=== PATIENT | male | born 1945 | race Caucasian/White ===

== ENCOUNTER 2019-02-03 15:10 | Inpatient (IN) | payer MEDICARE ==
--- NOTE | 2019-02-03 15:59 | ER Document Report ---
ED Medical Screen (RME) - General Chief Complaint: Abnormal Lab Results Stated Complaint: ABNORMAL LABS Time Seen by Provider: 02/03/19 15:57 Primary Care Provider: LEO BAIG MD [Primary Care Provider] - Follow up as needed Mode of Arrival: Ambulatory Information source: Patient Notes: 73-year-old male presented to ED for nausea vomiting and diarrhea for 16 days. He states the nausea and vomiting stopped about 3 days ago but he has continued to have diarrhea. He states his been to the doctor multiple times and tried everything they told him to try but he continues to have diarrhea. He states he is becoming very weak and tired from all the diarrhea. He states he had labs drawn on the it was told to come to the emergency room due to the labs. He does have a copy of all of his lab results with him. Patient is alert oriented respirations regular and unlabored speaking in full sentences. I have greeted and performed a rapid initial assessment of this patient. A comprehensive ED assessment and evaluation of the patient, analysis of test results and completion of medical decision making process will be conducted by an additional ED providers. Dictation of this chart was performed using voice recognition software; therefore, there may be some unintended grammatical errors. TRAVEL OUTSIDE OF THE [place] IN LAST 30 DAYS: No - Related Data Allergies/Adverse Reactions: No Known Allergies Allergy (Verified 02/03/19 15:17) Physical Exam - Vital signs Vitals: Temp Pulse Resp BP Pulse Ox 98.3 F 77 15 109/50 L 93 02/03/19 15:19 02/03/19 15:19 02/03/19 15:19 02/03/19 15:19 02/03/19 15:19 Course - Vital Signs Vital signs: Temp Pulse Resp BP Pulse Ox 98.3 F 77 15 109/50 L 93 02/03/19 15:19 02/03/19 15:19 02/03/19 15:19 02/03/19 15:19 02/03/19 15:19 Doctor's Discharge - Discharge Referrals: LEO BAIG MD [Primary Care Provider] - Follow up as needed
[2019-02-03] MEDS ORDERED: NORMAL SALINE 1000 ML 1,000 ML IV ONE (16:00)
[2019-02-03 16:49] LABS: ABSOLUTE BASOPHILS # (AUTO) 0.1 10^3/uL (0.0-0.2); ABSOLUTE EOSINOPHILS # (AUTO) 0.1 10^3/uL (0.0-0.6); ABSOLUTE LYMPHOCYTES (AUTO) 0.6 10^3/uL (0.5-4.7); ABSOLUTE MONOCYTES (AUTO) 0.5 10^3/uL (0.1-1.4); ABSOLUTE NEUT (AUTO) 5.6 10^3/uL (1.7-8.2); EOSINOPHILS % (AUTO) 1.2 % (0-6); HEMATOCRIT 35.6 % (37.9-51.0); LYMPHOCYTES % (AUTO) 9.2 % (13-45); MEAN CORPUSCULAR HEMOGLOBIN 31.3 pg (27.0-33.4); MEAN CORPUSCULAR HGB CONC 33.9 g/dL (32.0-36.0); MEAN CORPUSCULAR VOLUME 92 fl (80-97); MONOCYTES % (AUTO) 7.4 % (3-13); PLATELET COUNT 374 10^3/uL (150-450); RED BLOOD COUNT 3.85 10^6/uL (4.35-5.55); RED CELL DISTRIBUTION WIDTH 13.6 % (11.5-14.0); SEGMENTED NEUTROPHILS % (AUTO) 81.2 % (42-78); TOTAL CELLS COUNTED % (AUTO) 100 %; WHITE BLOOD COUNT 6.9 10^3/uL (4.0-10.5)
[2019-02-03 17:00] LABS: APPEARANCE,URINE CLEAR; BILIRUBIN,URINE NEGATIVE (NEGATIVE); COLOR,URINE YELLOW; GLUCOSE, URINE NEGATIVE (NEGATIVE); KETONES,URINE TRACE mg/dL (NEGATIVE); LEUKOCYTE ESTERASE,URINE SMALL (NEGATIVE); NITRITE,URINE NEGATIVE (NEGATIVE); PROTEIN,URINE NEGATIVE (NEGATIVE); URINE SPECIFIC GRAVITY 1.008; UROBILINOGEN,URINE NEGATIVE mg/dL (<2.0)
[2019-02-03 17:14] LABS: ALANINE AMINOTRANSFERASE 70 U/L (21-72); ALBUMIN 4.3 g/dL (3.5-5.0); ALKALINE PHOSPHATASE 149 U/L (38-126); ANION GAP 16 (5-19); ASPARTATE AMINO TRANSFERASE 76 U/L (17-59); BILIRUBIN,DIRECT 0.5 mg/dL (0.0-0.4); BILIRUBIN,TOTAL 0.8 mg/dL (0.2-1.3); BLOOD UREA NITROGEN 40 mg/dL (7-20); CALCIUM 9.6 mg/dL (8.4-10.2); CARBON DIOXIDE 28 mmol/L (22-30); CHLORIDE 92 mmol/L (98-107); GLUCOSE 98 mg/dL (75-110); POTASSIUM 4.4 mmol/L (3.6-5.0); SODIUM 135.7 mmol/L (137-145); TOTAL PROTEIN 7.5 g/dL (6.3-8.2)
[2019-02-03] MEDS ORDERED: RINGERS SOLUTION,LACTATED 1,000 ML IV ONE (17:52)
--- NOTE | 2019-02-03 18:17 | ER Document Report ---
ED General - General Chief Complaint: Abnormal Lab Results Stated Complaint: ABNORMAL LABS Time Seen by Provider: 02/03/19 15:57 Mode of Arrival: Ambulatory Notes: E Provider note: 73-year-old male presented to ED for nausea vomiting and diarrhea for 16 days. He states the nausea and vomiting stopped about 3 days ago but he has continued to have diarrhea. He states his been to the doctor multiple times and tried everything they told him to try but he continues to have diarrhea. He states he is becoming very weak and tired from all the diarrhea. He states he had labs drawn on the it was told to come to the emergency room due to the labs. He does have a copy of all of his lab results with him. Patient is alert oriented respirations regular and unlabored speaking in full sentences. My HPI: Creatinine of 2.10 NA 133 K 3.7 H&H 11.7:33.5 Labs all per documentation patient is brought from primary care provider Denis on 01/29/2019. Patient states he was placed on Zofran, metronidazole, ciprofloxacin. States he is taking his medications as prescribed. States his diarrhea has since stopped and he is no longer nauseous. States he was just worried about the jerking in bilateral feet. States he has been generalized weak. Family is in the room stating that he is a lot weaker than normal. Past medical history: Hypertension, hyperlipidemia, DVT, anxiety Medications: Hydrocodone, Eliquis, Valium, Loricet Allergies: None TRAVEL OUTSIDE OF THE [place] IN LAST 30 DAYS: No - Related Data Allergies/Adverse Reactions: No Known Allergies Allergy (Verified 02/03/19 15:17) Past Medical History - General Information source: Patient - Social History Smoking Status: Former Smoker Chew tobacco use (# tins/day): No Frequency of alcohol use: None Drug Abuse: None Family History: Reviewed & Not Pertinent Patient has suicidal ideation: No Patient has homicidal ideation: No - Past Medical History Cardiac Medical History: Reports: Hx Heart Attack Pulmonary Medical History: Reports: Hx COPD Renal/ Medical History: Denies: Hx Peritoneal Dialysis Review of Systems - Review of Systems Constitutional: denies: Fever EENT: No symptoms reported Cardiovascular: No symptoms reported Respiratory: No symptoms reported Gastrointestinal: See HPI Genitourinary: No symptoms reported Male Genitourinary: No symptoms reported Musculoskeletal: No symptoms reported Skin: No symptoms reported Hematologic/Lymphatic: No symptoms reported Neurological/Psychological: No symptoms reported Physical Exam - Vital signs Vitals: Temp Pulse Resp BP Pulse Ox 98.3 F 77 15 109/50 L 93 02/03/19 15:19 02/03/19 15:19 02/03/19 15:19 02/03/19 15:19 02/03/19 15:19 - Notes Notes: GENERAL: Alert, interacts well. No acute distress. HEAD: Normocephalic, atraumatic. EYES: Pupils equal, round, and reactive to light. Extraocular movements intact. ENT: Oral mucosa moist, tongue midline. NECK: Full range of motion. Supple. Trachea midline. LUNGS: Clear to auscultation bilaterally, no wheezes, rales, or rhonchi. No respiratory distress. HEART: Regular rate and rhythm. No murmur ABDOMEN: Soft, non-tender. Non-distended. Bowel sounds present in all 4 quadrants. No McBurney's point tenderness, no Rodriguez sign EXTREMITIES: Moves all 4 extremities spontaneously. No edema, normal radial and dorsalis pedis pulses bilaterally. No cyanosis. 5 out of 5 strength all 4 ext remities BACK: no cervical, thoracic, lumbar midline tenderness. No saddle anesthesia, normal distal neurovascular exam. NEUROLOGICAL: Alert and oriented x3. Normal speech. cranial nerves II through XII grossly intact PSYCH: Normal affect, normal mood. SKIN: Warm, dry, normal turgor. No rashes or lesions noted. Course - Re-evaluation Re-evalutation: Patient's labs do show an increase in his creatinine since drawn on 01/29/2019. Despite fluid resuscitation patient still has intermittent jerking bilateral lower extremities. I discussed this case with hospitalist Dr. Wisdom who will accept the patient for acute kidney injury, hypermagnesium. At this time patient has not yet had a bowel movement in the emergency department to get cultures. Patient remains hemodynamically stable continues to deny any abdominal pain, chest pain, shortness of breath. Patient states he overall feels better after initial fluid bolus in the emergency room. Labs are as follows Laboratory 02/03/19 02/03/19 02/03/19 16:30 16:30 16:30 WBC 6.9 RBC 3.85 L Hgb 12.0 L Hct 35.6 L MCV 92 MCH 31.3 MCHC 33.9 RDW 13.6 Plt Count 374 Seg Neutrophils % 81.2 H Lymphocytes % 9.2 L Monocytes % 7.4 Eosinophils % 1.2 Basophils % 1.0 Absolute Neutrophils 5.6 Absolute Lymphocytes 0.6 Absolute Monocytes 0.5 Absolute Eosinophils 0.1 Absolute Basophils 0.1 Sodium 135.7 L Potassium 4.4 Chloride 92 L Carbon Dioxide 28 Anion Gap 16 BUN 40 H Creatinine 2.75 H Est GFR ( Amer) 28 L Est GFR (Non-Af Amer) 23 L Glucose 98 Calcium 9.6 Magnesium 2.9 H Total Bilirubin 0.8 Direct Bilirubin 0.5 H Neonat Total Bilirubin Not Reportable Neonat Direct Bilirubin Not Reportable Neonat Indirect Bili Not Reportable AST 76 H ALT 70 Alkaline Phosphatase 149 H Total Protein 7.5 Albumin 4.3 Lipase Urine Color YELLOW Urine Appearance CLEAR Urine pH 6.0 Ur Specific [place] 1.008 Urine Protein NEGATIVE Urine Glucose (UA) NEGATIVE Urine Ketones TRACE H Urine Blood NEGATIVE Urine Nitrite NEGATIVE Urine Bilirubin NEGATIVE Urine Urobilinogen NEGATIVE Ur Leukocyte Esterase SMALL H Urine WBC (Auto) 1 Urine RBC (Auto) 0 Squamous Epi Cells Auto <1 Urine Ascorbic Acid NEGATIVE Stool Occult Blood 02/03/19 02/03/19 16:30 19:38 WBC RBC Hgb Hct MCV MCH MCHC RDW Plt Count Seg Neutrophils % Lymphocytes % Monocytes % Eosinophils % Basophils % Absolute Neutrophils Absolute Lymphocytes Absolute Monocytes Absolute Eosinophils Absolute Basophils Sodium Potassium Chloride Carbon Dioxide Anion Gap BUN Creatinine Est GFR ( Amer) Est GFR (Non-Af Amer) Glucose Calcium Magnesium Total Bilirubin Direct Bilirubin Neonat Total Bilirubin Neonat Direct Bilirubin Neonat Indirect Bili AST ALT Alkaline Phosphatase Total Protein Albumin Lipase 131.6 Urine Color Urine Appearance Urine pH Ur Specific [place] Urine Protein Urine Glucose (UA) Urine Ketones Urine Blood Urine Nitrite Urine Bilirubin Urine Urobilinogen Ur Leukocyte Esterase Urine WBC (Auto) Urine RBC (Auto) Squamous Epi Cells Auto Urine Ascorbic Acid Stool Occult Blood NEGATIVE - Vital Signs Vital signs: Temp Pulse Resp BP Pulse Ox 98.3 F 77 15 109/50 L 93 02/03/19 15:19 02/03/19 15:19 02/03/19 15:19 02/03/19 15:19 02/03/19 15:19 - Laboratory Result Diagrams: 02/03/19 16:30 02/03/19 16:30 Laboratory results interpreted by me: 02/03/19 02/03/19 02/03/19 16:30 16:30 16:30 RBC 3.85 L Hgb 12.0 L Hct 35.6 L Seg Neutrophils % 81.2 H Lymphocytes % 9.2 L Sodium 135.7 L Chloride 92 L BUN 40 H Creatinine 2.75 H Est GFR ( Amer) 28 L Est GFR (Non-Af Amer) 23 L Magnesium 2.9 H Direct Bilirubin 0.5 H AST 76 H Alkaline Phosphatase 149 H Urine Ketones TRACE H Ur Leukocyte Esterase SMALL H Discharge - Discharge Clinical Impression: Acute kidney injury, Hypermagnesemia Diarrhea Qualifiers: Diarrhea type: unspecified type Qualified Code(s): R19.7 - Diarrhea, unspecified Condition: Stable Disposition: ADMITTED INPATIENT Admitting Provider: Artis (Hospitalist) Unit Admitted: Medical Floor
--- NOTE | 2019-02-03 21:45 | PDOC H&P ---
History of Present Illness Admission Date/PCP: 02/03/19 19:46 LEO BAIG MD Patient complains of: Diarrhea History of Present Illness: AMELIA TILLMAN SR is a 73 year old male who presented to the emergency room with a 16-day history of diarrhea. He admits that 16 days ago after doing some yard work in the hot sun he came in and took a shower and ate supper and then started feeling ill with diarrhea and nausea and vomiting. After the first day or 2 the nausea and vomiting resolved but his diarrhea has persisted. He admits having moderate (3-5) watery diarrhea stools per day and acknowledges the associated symptoms of progressively worsening generalized weakness with some mild dizziness and tremulousness on the morning of admission. He has visited his primary care provider several times over the last 2 weeks for this complaint and after having blood work obtained a few days ago was directed to come to the emergency room for further evaluation and treatment due to his "dehydration". He denies prior similar episodes and has not identified any aggravating or ameliorating factors for his diarrhea. In the emergency room he was found to have a creatinine of 2.75 with an elevated magnesium of 2.9. He was subsequently admitted to the hospital for further evaluation and treatment. Past Medical History Cardiac Medical History: Reports: Coronary Artery Disease, Myocardial Infarction, Hypertension Pulmonary Medical History: Reports: Chronic Obstructive Pulmonary Disease (COPD) Denies: Asthma EENT Medical History: Denies: Cataracts, Ears - Hearing aid Neurological Medical History: Denies: Hemorrhagic CVA, Ischemic CVA, Seizures Endocrine Medical History: Denies: Diabetes Mellitus Type 1, Diabetes Mellitus Type 2, Hyperthyroidism, Hypothyroidism, Obesity Renal/ Medical History: Denies: Chronic Kidney Disease, Nephrolithiasis Malignancy Medical History: Reports: None GI Medical History: Reports: Other - Perirectal abscess (remote history) Denies: Cirrhosis, Hepatitis, Peptic Ulcer Disease Musculoskeltal Medical History: Reports: Other - Chronic back pain Denies: Arthritis, Gout Skin Medical History: Denies: Eczema, Psoriasis Psychiatric Medical History: Reports: Tobacco Dependency Denies: Alcohol Dependency, Substance Abuse Traumatic Medical History: Reports: None Hematology: Denies: Anemia, Bleeding Tendencies Infectious Medical History: Reports: None Past Surgical History Past Surgical History: Reports: Other - Incision and drainage of a perirectal abscess Social History Information Source: Patient Lives with: Spouse/Significant other Smoking Status: Former Smoker Frequency of Alcohol Use: None Hx Recreational Drug Use: No Drugs: None Hx Prescription Drug Abuse: No - Advance Directive Resuscitation Status: Full Code Surrogate healthcare decision maker:: Arlin Tillman Family History Family History: CAD, DM, Hypertension, Malignancy Parental Family History Reviewed: Yes Children Family History Reviewed: No Sibling(s) Family History Reviewed.: Yes Medication/Allergy Home Medications: Ciprofloxacin HCl [Cipro 500 mg Tablet] 500 mg PO Q12 02/03/19 Diazepam [Valium 5 mg Tablet] 5 mg PO BID 02/03/19 Hydrocodone/Acetaminophen [[place] 10-325 mg Tablet] 1 tab PO QID 02/03/19 Lisinopril/Hydrochlorothiazide [Zestoretic 20-25 mg Tablet] 1 tab PO DAILY 02/03/19 Metronidazole [Flagyl 500 mg Tablet] 500 mg PO Q8 02/03/19 Ondansetron [Zofran Odt 4 mg Tablet] 8 mg PO Q8HP PRN 02/03/19 Allergies/Adverse Reactions: No Known Allergies Allergy (Verified 02/03/19 15:17) Review of Systems Constitutional: PRESENT: as per HPI, weakness. ABSENT: anorexia, chills, fever(s) Eyes: ABSENT: visual disturbances, other - Ocular pain Ears: ABSENT: hearing changes, other - Ear pain Nose, Mouth, and Throat: ABSENT: mouth pain, sore throat Cardiovascular: ABSENT: chest pain, palpitations Respiratory: ABSENT: cough, dyspnea Gastrointestinal: PRESENT: as per HPI, diarrhea, nausea, vomiting. ABSENT: abdominal pain, constipation, hematochezia, melena Genitourinary: ABSENT: dysuria, hematuria Musculoskeletal: PRESENT: back pain. ABSENT: joint swelling, muscle weakness Integumentary: ABSENT: pruritus, rash - Chronic Neurological: PRESENT: as per HPI, dizziness - Dizziness on the morning of admission, tremor(s) - Tremulousness on the morning of admission. ABSENT: c onfusion, convulsions, focal weakness, memory loss, syncope Psychiatric: ABSENT: anxiety, depression Endocrine: ABSENT: cold intolerance, heat intolerance Hematologic/Lymphatic: ABSENT: easy bleeding, easy bruising Physical Exam Vital Signs: Temp Pulse Resp BP Pulse Ox 98.3 F 77 15 109/50 L 93 02/03/19 15:19 02/03/19 15:19 02/03/19 15:19 02/03/19 15:19 02/03/19 15:19 Intake & Output 02/01/19 02/02/19 02/03/19 23:59 23:59 23:59 Intake Total 1999 Balance 1999 Weight 83.1 kg General appearance: PRESENT: no acute distress, cooperative Head exam: PRESENT: atraumatic, normocephalic Eye exam: ABSENT: conjunctival injection, scleral icterus Ear exam: PRESENT: normal external ear exam. ABSENT: bleeding, drainage Mouth exam: PRESENT: dry mucosa, neck supple Neck exam: ABSENT: thyromegaly, tracheal deviation Respiratory exam: PRESENT: clear to auscultation vazquez, symmetrical, unlabored Cardiovascular exam: PRESENT: RRR. ABSENT: clicks, gallop, rubs Pulses: PRESENT: normal radial pulses, normal dorsalis pedis pul Vascular exam: PRESENT: normal capillary refill. ABSENT: pallor GI/Abdominal exam: PRESENT: hyperactive bowel sounds, soft. ABSENT: tenderness Rectal exam: PRESENT: deferred Extremities exam: ABSENT: joint swelling, pedal edema Musculoskeletal exam: PRESENT: full ROM, normal inspection Neurological exam: PRESENT: alert, oriented to person, oriented to place, oriented to time, oriented to situation, CN II-XII grossly intact. ABSENT: motor sensory deficit Psychiatric exam: PRESENT: appropriate affect, normal mood Skin exam: PRESENT: dry, intact, warm. ABSENT: jaundice, rash, urticaria Results Laboratory Results: 02/03/19 16:30 02/03/19 16:30 02/03/19 02/03/19 02/03/19 16:30 16:30 16:30 WBC 6.9 RBC 3.85 L Hgb 12.0 L Hct 35.6 L MCV 92 MCH 31.3 MCHC 33.9 RDW 13.6 Plt Count 374 Seg Neutrophils % 81.2 H Lymphocytes % 9.2 L Monocytes % 7.4 Eosinophils % 1.2 Basophils % 1.0 Absolute Neutrophils 5.6 Absolute Lymphocytes 0.6 Absolute Monocytes 0.5 Absolute Eosinophils 0.1 Absolute Basophils 0.1 Sodium 135.7 L Potassium 4.4 Chloride 92 L Carbon Dioxide 28 Anion Gap 16 BUN 40 H Creatinine 2.75 H Est GFR ( Amer) 28 L Est GFR (Non-Af Amer) 23 L Glucose 98 Calcium 9.6 Magnesium 2.9 H Total Bilirubin 0.8 AST 76 H ALT 70 Alkaline Phosphatase 149 H Total Protein 7.5 Albumin 4.3 Lipase Urine Color YELLOW Urine Appearance CLEAR Urine pH 6.0 Ur Specific [place] 1.008 Urine Protein NEGATIVE Urine Glucose (UA) NEGATIVE Urine Ketones TRACE H Urine Blood NEGATIVE Urine Nitrite NEGATIVE Ur Leukocyte Esterase SMALL H Urine WBC (Auto) 1 Urine RBC (Auto) 0 Stool Occult Blood Stool for White Cells 02/03/19 02/03/19 02/03/19 16:30 19:38 19:38 WBC RBC Hgb Hct MCV MCH MCHC RDW Plt Count Seg Neutrophils % Lymphocytes % Monocytes % Eosinophils % Basophils % Absolute Neutrophils Absolute Lymphocytes Absolute Monocytes Absolute Eosinophils Absolute Basophils Sodium Potassium Chloride Carbon Dioxide Anion Gap BUN Creatinine Est GFR ( Amer) Est GFR (Non-Af Amer) Glucose Calcium Magnesium Total Bilirubin AST ALT Alkaline Phosphatase Total Protein Albumin Lipase 131.6 Urine Color Urine Appearance Urine pH Ur Specific [place] Urine Protein Urine Glucose (UA) Urine Ketones Urine Blood Urine Nitrite Ur Leukocyte Esterase Urine WBC (Auto) Urine RBC (Auto) Stool Occult Blood NEGATIVE Stool for White Cells NO WBCs SEEN Assessment and Plan - Diagnosis (1) Acute kidney injury Is this a current diagnosis for this admission?: Yes Plan: Patient be treated with IV fluids and his renal functions to be monitored on a daily basis with a basic metabolic profile and a magnesium level. (2) Diarrhea Qualifiers: Diarrhea type: unspecified type Qualified Code(s): R19.7 - Diarrhea, unspecified Is this a current diagnosis for this admission?: Yes Plan: Patient be treated with IV fluids and will also receive supportive and symptomatic cares. A stool specimen will be obtained for culture for pathogens and evaluation for C. difficile. A thyroid profile will be obtained in the morning. (3) CAD (coronary artery disease), [place] coronary artery Qualifiers: [place] vs. transplanted heart: [place] heart Associated angina: angina presence unspecified Qualified Code(s): I25.10 - Atherosclerotic heart disease of [place] coronary artery without angina pectoris Is this a current diagnosis for this admission?: Yes Plan: Patient's vital signs will be observed throughout his hospital course and any events suggestive of exacerbation of his long silent coronary artery disease will be addressed immediately. Lipid profile will be obtained to further evaluate the patient's coronary artery disease. (4) Chronic back pain greater than 3 months duration Is this a current diagnosis for this admission?: Yes Plan: Patient be continued on his usual regiment for his chronic back pain. Additionally he will use morphine sulfate 2 to 4 mg IV every 2 hours on a sliding scale basis for pain control. (5) HTN (hypertension) Qualifiers: Hypertension type: essential hypertension Qualified Code(s): I10 - Essential (primary) hypertension Is this a current diagnosis for this admission?: Yes Plan: Patient be continued on his usual antihypertensive medication once he has recovered from his diarrhea and relative dehydration. His blood pressure be monitored closely throughout his hospital course. - Time Time Spent with patient: 25-34 minutes Medications reviewed and adjusted accordingly: Yes Anticipated discharge: Home - Inpatient Certification Based on my medical assessment, after consideration of the patient's comorbidities, presenting symptoms, or acuity I expect that the services needed warrant INPATIENT care.: Yes I certify that my determination is in accordance with my understanding of Medicare's requirements for reasonable and necessary INPATIENT services [42 CFR 412.3e].: Yes Medical Necessity: Failure to Improve With Outpatient Therapy, Need Close Monitoring Due to Risk of Patient Decompensation, Need For IV Fluids, Need for Pain Control, Risk of Complication if Not Cared For in Hospital
[2019-02-03] MEDS ORDERED: ONDANSETRON HCL INJ/PF 4 MG/2 ML SDV IV PRN (21:53)
[2019-02-03] MEDS ORDERED: MAG HYDROX/AL HYDROX/SIMETH SUSP 30 ML UDCUP PO PRN (21:53)
[2019-02-03] MEDS ORDERED: MORPHINE SULFATE 10 MG/ML INJ IV PRN (22:00)
[2019-02-03] MEDS ORDERED: ACETAMINOPHEN 325 MG TABLET PO PRN (22:00)
[2019-02-03] MEDS: HEPARIN SOD (PORCINE) 5,000 UNIT/ML 1 ML SYRINGE SUBCUT SCH (22:20)
[2019-02-03] MEDS: RINGERS SOLUTION,LACTATED 1,000 ML IV PRN (22:20)
[2019-02-03] MEDS ORDERED: DIAZEPAM 5 MG TABLET PO ONE (22:30)
[2019-02-03] MEDS ORDERED: HYDROCODONE/ACETAMINOPHEN 10-325 MG TABLET PO ONE (22:30)
[2019-02-04] MEDS ORDERED: VANCOMYCIN HCL INJ 500 MG VIAL PO SCH
[2019-02-04] MEDS ORDERED: LOPERAMIDE HCL 2 MG CAPSULE PO ONE (01:00)
[2019-02-04] MEDS: LOPERAMIDE HCL 2 MG CAPSULE PO PRN ×3 (02:30→17:31)
[2019-02-04] MEDS: PANTOPRAZOLE SODIUM 40 MG TABLET.DR PO SCH (05:37)
[2019-02-04] MEDS: HEPARIN SOD (PORCINE) 5,000 UNIT/ML 1 ML SYRINGE SUBCUT SCH ×3 (05:37→22:27)
[2019-02-04 06:01] LABS: HEMATOCRIT 32.3 % (37.9-51.0); HEMOGLOBIN 10.9 g/dL (13.5-17.0); MEAN CORPUSCULAR HEMOGLOBIN 31.1 pg (27.0-33.4); MEAN CORPUSCULAR HGB CONC 33.8 g/dL (32.0-36.0); MEAN CORPUSCULAR VOLUME 92 fl (80-97); PLATELET COUNT 345 10^3/uL (150-450); RED BLOOD COUNT 3.51 10^6/uL (4.35-5.55); RED CELL DISTRIBUTION WIDTH 13.4 % (11.5-14.0); WHITE BLOOD COUNT 4.8 10^3/uL (4.0-10.5)
[2019-02-04 06:15] LABS: ANION GAP 9 (5-19); BLOOD UREA NITROGEN 31 mg/dL (7-20); CALCIUM 9.1 mg/dL (8.4-10.2); CARBON DIOXIDE 30 mmol/L (22-30); CHLORIDE 99 mmol/L (98-107); CHOLESTEROL 177.41 mg/dL (0-200); GLUCOSE 87 mg/dL (75-110); POTASSIUM 3.9 mmol/L (3.6-5.0); SODIUM 138.2 mmol/L (137-145); TRIGLYCERIDES 141 mg/dL (<150)
[2019-02-04 06:26] LABS: DIRECT LDL 98 mg/dL (<100)
[2019-02-04 06:31] LABS: FREE T3 3.6 pg/mL (2.77-5.27); FREE T4 (FREE THYROXINE) 1.44 ng/dL (0.78-2.19)
[2019-02-04 06:44] LABS: THYROID STIMULATING HORMONE 1.08 uIU/mL (0.47-4.68)
[2019-02-04] MEDS: HYDROCODONE/ACETAMINOPHEN 10-325 MG TABLET PO SCH ×4 (09:11→22:28)
[2019-02-04] MEDS: DIAZEPAM 5 MG TABLET PO SCH ×2 (09:11→17:30)
[2019-02-05 05:54] LABS: HEMATOCRIT 30.6 % (37.9-51.0); HEMOGLOBIN 10.5 g/dL (13.5-17.0); MEAN CORPUSCULAR HEMOGLOBIN 31.7 pg (27.0-33.4); MEAN CORPUSCULAR HGB CONC 34.2 g/dL (32.0-36.0); MEAN CORPUSCULAR VOLUME 93 fl (80-97); PLATELET COUNT 314 10^3/uL (150-450); RED CELL DISTRIBUTION WIDTH 13.6 % (11.5-14.0); WHITE BLOOD COUNT 3.9 10^3/uL (4.0-10.5)
[2019-02-05 06:17] LABS: ANION GAP 11 (5-19); BLOOD UREA NITROGEN 23 mg/dL (7-20); CALCIUM 9.2 mg/dL (8.4-10.2); CARBON DIOXIDE 29 mmol/L (22-30); CHLORIDE 102 mmol/L (98-107); GLUCOSE 88 mg/dL (75-110); POTASSIUM 4.2 mmol/L (3.6-5.0); SODIUM 141.5 mmol/L (137-145)
[2019-02-05] MEDS: HEPARIN SOD (PORCINE) 5,000 UNIT/ML 1 ML SYRINGE SUBCUT SCH ×2 (06:45→14:05)
[2019-02-05] MEDS: PANTOPRAZOLE SODIUM 40 MG TABLET.DR PO SCH (06:46)
[2019-02-05] MEDS: RINGERS SOLUTION,LACTATED 1,000 ML IV PRN (06:47)
[2019-02-05] MEDS ORDERED: NORMAL SALINE 1000 ML 1,000 ML IV ONE ×2 (08:45→16:30)
[2019-02-05] MEDS ORDERED: ACETAMINOPHEN 325 MG TABLET PO PRN (08:47)
[2019-02-05] MEDS ORDERED: ONDANSETRON HCL INJ/PF 4 MG/2 ML SDV IV PRN (09:00)
[2019-02-05] MEDS: DIAZEPAM 5 MG TABLET PO SCH ×2 (09:41→17:12)
[2019-02-05] MEDS: HYDROCODONE/ACETAMINOPHEN 10-325 MG TABLET PO SCH ×3 (09:41→17:11)
[2019-02-05 14:28] LABS: ANION GAP 8 (5-19); BLOOD UREA NITROGEN 19 mg/dL (7-20); CALCIUM 9.3 mg/dL (8.4-10.2); CARBON DIOXIDE 29 mmol/L (22-30); CHLORIDE 105 mmol/L (98-107); GLUCOSE 102 mg/dL (75-110); POTASSIUM 4.7 mmol/L (3.6-5.0); SODIUM 141.6 mmol/L (137-145)
[2019-02-05] MEDS: LOPERAMIDE HCL 2 MG CAPSULE PO PRN (15:49)
[2019-02-05 16:31] VITALS: BP 137/52
--- NOTE | 2019-02-16 21:27 | PDOC DISCHARGE SUMMARY ---
General - Admit/Disc Date/PCP Admission Date/Primary Care Provider: 02/03/19 19:46 LEO BAIG MD Discharge Date: 02/05/19 - Discharge Diagnosis (1) Acute kidney injury Is this a current diagnosis for this admission?: Yes (2) Diarrhea Is this a current diagnosis for this admission?: Yes - Additional Information Resuscitation Status: Full Code Discharge Diet: As Tolerated Discharge Activity: Activity As Tolerated Prescriptions: Loperamide HCl [Imodium 2 mg Capsule] 2 mg PO Q12HP PRN #10 capsule PRN Reason: Home Medications: Ciprofloxacin HCl [Cipro 500 mg Tablet] 500 mg PO Q12 02/03/19 Diazepam [Valium 5 mg Tablet] 5 mg PO BID 02/03/19 Hydrocodone/Acetaminophen [[place] 10-325 mg Tablet] 1 tab PO QID 02/03/19 Lisinopril/Hydrochlorothiazide [Zestoretic 20-25 mg Tablet] 1 tab PO DAILY 02/03/19 Metronidazole [Flagyl 500 mg Tablet] 500 mg PO Q8 02/03/19 Ondansetron [Zofran Odt 4 mg Tablet] 8 mg PO Q8HP PRN 02/03/19 Loperamide HCl [Imodium 2 mg Capsule] 2 mg PO Q12HP PRN #10 capsule 02/05/19 History of Present Illness History of Present Illness: AMELIA TILLMAN SR is a 73 year old male who presented to the emergency room with a 16-day history of diarrhea. He admits that 16 days ago after doing some yard work in the hot sun he came in and took a shower and ate supper and then started feeling ill with diarrhea and nausea and vomiting. After the first day or 2 the nausea and vomiting resolved but his diarrhea has persisted. He admits having moderate (3-5) watery diarrhea stools per day and acknowledges the associated symptoms of progressively worsening generalized weakness with some mild dizziness and tremulousness on the morning of admission. He has visited his primary care provider several times over the last 2 weeks for this complaint and after having blood work obtained a few days ago was directed to come to the emergency room for further evaluation and treatment due to his "dehydration". He denies prior similar episodes and has not identified any aggravating or ameliorating factors for his diarrhea. In the emergency room he was found to have a creatinine of 2.75 with an elevated magnesium of 2.9. He was subsequently admitted to the hospital for further evaluation and treatment. Hospital Course Hospital Course: 73 y.o. M with a PMH HTN presented to [facility] for a 16 day history of diarrhea. The patient was being treated with ciprofloxacin and doxycycline by his PCP, but his symptoms were not resolving. C DIFF PCR and stool culture were negative. When asked about the source of his diarrhea, the patient states he thinks it started after eating bad chicken. The patient has no known history of kidney disease, but his creatinine upon arrival was 2.75. The source of the patient's JAREN was most likely prerenal, stemming from hypovolemia due to his diarrhea. The patient was treated with aggressive IVF resuscitation. By hospital day #2 the patient's creatinine had decreased to 1.4. He was instructed to continue PO hydration at home, avoid caffeine or alcohol, which can lead to dehydration. The patient stated understanding and he was discharged home. Physical Exam Vital Signs: Temp Pulse Resp BP Pulse Ox 97.9 F 57 L 16 137/52 H 95 02/05/19 16:29 02/05/19 16:29 02/05/19 16:29 02/05/19 16:29 02/05/19 16:29 General appearance: PRESENT: no acute distress, well-developed, well-nourished Head exam: PRESENT: atraumatic, normocephalic Eye exam: PRESENT: conjunctiva pink, EOMI, PERRLA. ABSENT: scleral icterus Ear exam: PRESENT: normal external ear exam Mouth exam: PRESENT: moist, tongue midline Neck exam: ABSENT: carotid bruit, JVD, lymphadenopathy, thyromegaly Respiratory exam: PRESENT: clear to auscultation vazquez. ABSENT: rales, rhonchi, wheezes Cardiovascular exam: PRESENT: RRR. ABSENT: diastolic murmur, rubs, systolic murmur Pulses: PRESENT: normal dorsalis pedis pul Vascular exam: PRESENT: normal capillary refill GI/Abdominal exam: PRESENT: normal bowel sounds, soft. ABSENT: distended, guarding, mass, organolmegaly, rebound, tenderness Rectal exam: PRESENT: deferred Extremities exam: PRESENT: full ROM. ABSENT: calf tenderness, clubbing, pedal edema Neurological exam: PRESENT: alert, awake, oriented to person, oriented to place, oriented to time, oriented to situation, CN II-XII grossly intact. ABSENT: motor sensory deficit Psychiatric exam: PRESENT: appropriate affect, normal mood. ABSENT: homicidal ideation, suicidal ideation Skin exam: PRESENT: dry, intact, warm. ABSENT: cyanosis, rash Results Laboratory Results: 02/05/19 04:34 02/05/19 13:51 Status: Imported from PACS Qualifiers - * PATIENT BEING DISCHARGED WITH ANY OF THE FOLLOWING DIAGNOSIS: No Acute Heart Failure - Is this a Heart Failure Patient?: No
== END 2019-02-05 17:42 | disposition home or self-care (01) | DRG 392 ==
LOC: ER 15:10 → EH 19:46 → 5 23:25
PROVIDERS: ADMIT Emergency Medicine; ATTEND Emergency Medicine
DX: R19.7 Diarrhea, unspecified (principal); N17.9 Acute kidney failure, unspecified; E86.0 Dehydration; I25.10 Atherosclerotic heart disease of native coronary artery without angina pectoris; I25.2 Old myocardial infarction; I10 Essential (primary) hypertension; J44.9 Chronic obstructive pulmonary disease, unspecified; G89.29 Other chronic pain; E83.41 Hypermagnesemia; M54.9 Dorsalgia, unspecified; Z87.891 Personal history of nicotine dependence; Z79.891 Long term (current) use of opiate analgesic; Z79.899 Other long term (current) drug therapy; Z82.49 Family history of ischemic heart disease and other diseases of the circulatory system; Z83.3 Family history of diabetes mellitus; Z80.9 Family history of malignant neoplasm, unspecified
CPT/HCPCS: 36415; 80048; 80053; 80061; 81001; 82272; 83690; 83735; 84439; 84443; 84481; 85025; 85027; 87045; 87205; 87493; 89055; 96360; 96361; 99284; J1644; J2405; J3490; J7030; J7120